=== PATIENT | male | born 1970 | race Hispanic/Latino ===

== ENCOUNTER 2019-11-18 20:22 | Emergency (ER) | payer SELFPAY | END 2019-11-18 20:57 | disposition home or self-care (01) | LOC: ERS 20:22 | DX: L27.0 Generalized skin eruption due to drugs and medicaments taken internally (principal); T36.0X5A Adverse effect of penicillins, initial encounter; I10 Essential (primary) hypertension; Z79.52 Long term (current) use of systemic steroids | CPT/HCPCS: 99282 ==